=== PATIENT | male | born 2000 | race Caucasian/White ===

== ENCOUNTER 2021-09-07 21:23 | Emergency (ER) | payer OTHER ==
[~2021-09-07] VITALS: Ht 188 cm; Wt 77.3 kg
[2021-09-07 22:46] LABS: APPEARANCE,URINE CLEAR (CLEAR); BILIRUBIN,URINE NEGATIVE (NEGATIVE); GLUCOSE, URINE (UA) NEGATIVE (NEGATIVE); LEUKOCYTE ESTERASE ,URINE NEGATIVE (NEGATIVE); NITRATE,URINE NEGATIVE (NEGATIVE); OCCULT BLOOD,URINE NEGATIVE (NEGATIVE); PROTEIN,URINE NEGATIVE (NEGATIVE); SPECIFIC GRAVITIY, URINE 1.025 (1.003-1.030)
[2021-09-07 22:50] LABS: BACTERIA,URINE None Seen /HPF (None Seen); RBC,URINE None Seen /HPF (0-2); WBC,URINE None Seen /HPF (0-5)
[2021-09-07 22:56] VITALS: BP 142/77
== END 2021-09-07 23:12 | disposition home or self-care (01) ==
LOC: EMS 21:29
DX: I86.1 Scrotal varices (principal)
CPT/HCPCS: 76870; 81001; 87491; 87591; 99284; Z7502